=== PATIENT | male | born 2005 | race Caucasian/White ===

== ENCOUNTER 2024-08-04 20:47 | Emergency (ER) | payer MEDICAID, OTHER ==
[~2024-08-04] VITALS: Ht 182.9 cm; Wt 108.9 kg
[2024-08-04 20:59] VITALS: TEMP 98.1
[2024-08-04] MEDS ORDERED: KETOROLAC TROMETHAMINE INJ 30 MG/ML VIAL ONE (21:15)
[2024-08-04] MEDS: KETOROLAC TROMETHAMINE INJ 60 MG/2 ML VIAL IM ONE (21:18)
[2024-08-04] MEDS ORDERED: CYCL5TAB PO (22:07)
[2024-08-04] MEDS ORDERED: KETO10TA2 PO (22:07)
[2024-08-04 22:15] VITALS: BP 145/85; O2SAT 98
== END 2024-08-04 22:15 | disposition home or self-care (01) ==
LOC: ER 20:54
DX: S13.9XXA Sprain of joints and ligaments of unspecified parts of neck, initial encounter (principal); S33.5XXA Sprain of ligaments of lumbar spine, initial encounter; M54.6 Pain in thoracic spine; M79.606 Pain in leg, unspecified; V43.52XA Car driver injured in collision with other type car in traffic accident, initial encounter; Y93.89 Activity, other specified; Y92.488 Other paved roadways as the place of occurrence of the external cause; Y99.8 Other external cause status
CPT/HCPCS: 99285; 72125; 96372; 70450; 72131; 72128; J1885